=== PATIENT | female | born 1950 | race American Indian/Alaskan Native ===

== ENCOUNTER 2022-03-19 00:47 | Inpatient (IN) | payer MEDICARE, MEDICAID ==
[2022-03-19] MEDS ORDERED: Ondansetron 4 MG Tab.DIS PO PRN (01:18)
[2022-03-19] MEDS ORDERED: Acetaminophen 325 MG Tab PO PRN (01:18)
[2022-03-19] MEDS ORDERED: Magnesium Hydroxide 400 MG/5 ML Susp 30 ML Cup PO PRN (01:18)
[2022-03-19] MEDS ORDERED: Ondansetron 4 MG/2 ML SDV IV PRN (01:18)
[2022-03-19] MEDS ORDERED: Albuterol 0.083% 2.5 MG/3 ML Neb Soln NEB PRN (01:42)
[2022-03-19] MEDS ORDERED: Sodium Chloride 0.9% 10 ML Syringe FLUSH PRN (01:42)
[2022-03-19] MEDS ORDERED: Sodium Chloride 0.9% 1,000 ML IV SCH (01:45)
[2022-03-19] MEDS ORDERED: Insulin Lispro 100 Unit/ML 3 ML KwikPen SUBCUT SCH (03:00)
[2022-03-19] MEDS ORDERED: Piperacillin/Tazobactam 3.375 GM in Sodium Chloride 0.9% 50 ML IV SCH (05:00)
[2022-03-19] MEDS ORDERED: Albuterol/Ipratropium 3.0-0.5 MG/3 ML Neb Soln NEB SCH ×2 (06:00→07:00)
[2022-03-19] MEDS: Magnesium Sulfate/Water 2 GM in Premix Bag 1 BAG IV SCH ×3 (06:16→17:12)
[2022-03-19] MEDS: Albuterol/Ipratropium 3.0-0.5 MG/3 ML Neb Soln NEB SCH ×4 (07:02→22:05)
[2022-03-19] MEDS: Insulin Lispro 100 Unit/ML 3 ML KwikPen SUBCUT SCH ×4 (07:49→21:18)
[2022-03-19] MEDS: Pantoprazole 40 MG Tab.CR PO SCH ×2 (07:52→16:28)
[2022-03-19] MEDS ORDERED: Non-Formulary Medication 1 Each (Olopatadine [Patanol 0.1% Ophth Soln] 5 ML Bottle) OP SCH (09:00)
[2022-03-19] MEDS ORDERED: Non-Formulary Medication 1 Each (Gabapentin [Neurontin] 600 MG Tablet) PO SCH (09:00)
[2022-03-19] MEDS ORDERED: Ketotifen 0.025% Ophth Soln 5 ML Bottle EYEBOTH SCH (09:00)
[2022-03-19] MEDS: Doxycycline 100 MG Cap PO SCH ×2 (09:20→22:15)
[2022-03-19] MEDS: Gabapentin 300 MG Cap PO SCH ×3 (09:20→22:15)
[2022-03-19] MEDS: DULoxetine 30 MG Cap PO SCH (09:21)
[2022-03-19] MEDS: Loratadine 10 MG Tab PO SCH (09:21)
[2022-03-19] MEDS: Oseltamivir 30 MG Cap PO SCH ×2 (09:21→22:15)
[2022-03-19] MEDS: Lisinopril 20 MG Tab PO SCH (09:29)
[2022-03-19] MEDS: Metoprolol Tartrate 25 MG Tab PO SCH ×2 (09:30→22:12)
[2022-03-19] MEDS: Lactobacillus Rhamnosus GG (Probiotic) Cap PO SCH ×2 (09:31→22:12)
[2022-03-19] MEDS: Ketotifen 0.025% Ophth Soln 5 ML Bottle EYEBOTH SCH ×2 (09:31→22:15)
[2022-03-19] MEDS: Piperacillin/Tazobactam/Dext 3.375 GM in Premix Bag 1 BAG IV SCH ×3 (12:09→22:16)
[2022-03-19] MEDS ORDERED: Vancomycin 1 GM SDV IV SCH (19:00)
[2022-03-19] MEDS ORDERED: Melatonin 3 MG Tab PO SCH (21:00)
[2022-03-19] MEDS ORDERED: QUEtiapine 100 MG Tab PO SCH (21:00)
[2022-03-19] MEDS ORDERED: Pravastatin 20 MG Tab PO SCH (21:00)
[2022-03-20] MEDS: Piperacillin/Tazobactam/Dext 3.375 GM in Premix Bag 1 BAG IV SCH ×2 (05:01→11:20)
[2022-03-20] MEDS: Albuterol/Ipratropium 3.0-0.5 MG/3 ML Neb Soln NEB SCH ×2 (07:21→11:05)
[2022-03-20] MEDS ORDERED: glipiZIDE 5 MG Tab.ER PO SCH (08:00)
[2022-03-20] MEDS: Loratadine 10 MG Tab PO SCH (08:07)
[2022-03-20] MEDS: DULoxetine 30 MG Cap PO SCH (08:07)
[2022-03-20] MEDS: Lactobacillus Rhamnosus GG (Probiotic) Cap PO SCH (08:07)
[2022-03-20] MEDS: Pantoprazole 40 MG Tab.CR PO SCH (08:07)
[2022-03-20] MEDS: Gabapentin 300 MG Cap PO SCH (08:08)
[2022-03-20] MEDS: Doxycycline 100 MG Cap PO SCH (08:08)
[2022-03-20] MEDS: Oseltamivir 30 MG Cap PO SCH (08:08)
[2022-03-20] MEDS: Ketotifen 0.025% Ophth Soln 5 ML Bottle EYEBOTH SCH (08:08)
[2022-03-20] MEDS: Metoprolol Tartrate 25 MG Tab PO SCH (08:09)
[2022-03-20] MEDS: Lisinopril 20 MG Tab PO SCH (08:09)
== END 2022-03-20 13:45 | disposition home or self-care (01) | DRG 193 ==
LOC: JP.MS 00:47
PROVIDERS: ADMIT Internal Medicine; ATTEND Internal Medicine
DX: J10.08 Influenza due to other identified influenza virus with other specified pneumonia (principal); J96.01 Acute respiratory failure with hypoxia; E87.1 Hypo-osmolality and hyponatremia; J15.9 Unspecified bacterial pneumonia; E83.42 Hypomagnesemia; I10 Essential (primary) hypertension; E78.5 Hyperlipidemia, unspecified; K21.9 Gastro-esophageal reflux disease without esophagitis; F41.9 Anxiety disorder, unspecified; F32.A Depression, unspecified; E11.42 Type 2 diabetes mellitus with diabetic polyneuropathy; Z90.5 Acquired absence of kidney; Z85.528 Personal history of other malignant neoplasm of kidney
CPT/HCPCS: 36415; 80048; 80202; 82947; 83735; 85027; 94640; 97162-GP; A9270-GY; J1815; J2543; J3475; J7620